=== PATIENT | male | born 2000 | race Asian ===

== ENCOUNTER 2021-06-04 04:38 | Emergency (ER) | payer OTHER ==
[~2021-06-04] VITALS: Ht 182.9 cm; Wt 77.1 kg
[2021-06-04 04:40] VITALS: BP 128/64
[2021-06-04 05:57] VITALS: BP 128/64
== END 2021-06-04 05:56 | disposition home or self-care (01) ==
LOC: MED 04:38
DX: S06.0X0A Concussion without loss of consciousness, initial encounter (principal); W19.XXXA Unspecified fall, initial encounter; Y93.89 Activity, other specified; Y92.89 Other specified places as the place of occurrence of the external cause; Y99.8 Other external cause status
CPT/HCPCS: 70450; 99284